=== PATIENT | female | born 1970 | race Caucasian/White ===

== ENCOUNTER 2022-04-06 20:52 | Emergency (ER) | payer BC ==
[2022-04-06] MEDS ORDERED: Adacel Vial IM ONE ×2 (21:01→21:06)
--- NOTE | 2022-04-06 21:01 | ERPHSYRPT ---
- History of Present Illness Time Seen by Provider: 04/06/22 20:59 Source: patient Exam Limitations: no limitations Physician History: This is a 51-year-old white female who is not up-to-date on her Tdap immunizations. 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 Patient has no complaints or medical problems at this time Timing/Duration: today Associated Symptoms: denies symptoms Travel Risk - International Travel Have you traveled outside of the country in past 3 weeks: No - Coronavirus Screening Are you exhibiting any of the following symptoms?: No Close contact with a COVID-19 positive Pt in past 14-21 Days: No - Review of Systems Constitutional: No Symptoms Eyes: No Symptoms Ears, Nose, & Throat: No Symptoms Respiratory: No Symptoms Cardiac: No Symptoms Abdominal/Gastrointestinal: No Symptoms Genitourinary Symptoms: No Symptoms Musculoskeletal: No Symptoms Skin: No Symptoms Neurological: No Symptoms Psychological: No Symptoms Endocrine: No Symptoms Hematologic/Lymphatic: No Symptoms Immunological/Allergic: No Symptoms All Other Systems: Reviewed and Negative - Past Medical History Pertinent Past Medical History: No - Physical Exam General Appearance: no apparent distress, alert Eye Exam: PERRL/EOMI, eyes nml inspection Ears, Nose, Throat Exam: normal ENT inspection, moist mucous membranes Neck Exam: normal inspection, non-tender, supple, full range of motion Respiratory Exam: airway intact, No chest tenderness, No respiratory distress Gastrointestinal/Abdomen Exam: No tenderness Rectal Exam: not done Back Exam: normal inspection, normal range of motion, No CVA tenderness, No vertebral tenderness Extremity Exam: normal inspection, normal range of motion, pelvis stable Neurologic Exam: alert, oriented x 3, cooperative, product marketer II-XII nml as tested, normal mood/affect, nml cerebellar function, nml station & gait, sensation nml Skin Exam: normal color, warm, dry Lymphatic Exam: No adenopathy SpO2 Interpretation: normal O2 Delivery: Room Air - Course Nursing assessment & vital signs reviewed: Yes - Progress Progress: unchanged Counseled pt/family regarding: diagnosis, need for follow-up - Departure Departure Disposition: Home Clinical Impression: Encounter for medical screening examination Condition: Stable Critical Care Time: No Additional Instructions: Follow-up with your primary care provider as needed
[2022-04-06 21:06] VITALS: BP 155/94; PULSE 80
[2022-04-06 21:18] VITALS: O2SAT 98
== END 2022-04-06 21:21 | disposition home or self-care (01) ==
LOC: ED 20:52
DX: Z23 Encounter for immunization (principal)
CPT/HCPCS: 90471; 90715; 99282